=== PATIENT | male | born 1980 | race Caucasian/White ===

== ENCOUNTER 2016-09-12 10:32 | Emergency (ER) | payer BC, OTHER ==
[~2016-09-12] VITALS: Ht 170.2 cm; Wt 85.0 kg
[~2016-09-12 10:32] MED LIST: ALBU0.086 INH
[2016-09-12 10:33] VITALS: BP 153/77; PULSE 74; RESP 16; TEMP 98.3; O2SAT 98
[2016-09-12] MEDS ORDERED: VITA10007 PO (10:42)
[2016-09-12] MEDS ORDERED: VITA100C6 CHEW (10:42)
[2016-09-12] MEDS ORDERED: MULT1TAB84 PO (10:42)
[2016-09-12 10:44] VITALS: BP 136/87; PULSE 89; RESP 18; O2SAT 99
[2016-09-12] MEDS ORDERED: ONDANSETRON HCL 4 MG/2 ML VIAL IV PUSH ONE (11:00)
[2016-09-12] MEDS ORDERED: SODIUM CHLOR 0.9% 1000 ML INJ 1,000 ML IV ONE (11:00)
[2016-09-12] MEDS ORDERED: HYDROmorphone HCL PF 1 MG/ML VIAL IV PUSH ONE (11:00)
--- NOTE | 2016-09-12 11:04 | PD ---
HPI Chief Complaint: Abdominal Pain Time Seen by Provider: 10:50 Travel History International Travel<30 days: No Contact w/Intl Traveler<30days: No Traveled to known affect area: No History of Present Illness HPI This is a 35-year-old male who presents to the emergency department with right upper quadrant abdominal pain, constant for 3 days, severe, nonradiating associated with some subjective fever over the weekend. He denies any nausea or vomiting. He denies any diarrhea. He says this feels very similar to when he had to have his gallbladder out 4 years ago. He says he hasn't had much problems since then. The pain is worse with deep breaths and with movement. PFSH Past Medical History Cancer: No Cardiovascular Problems: No Diabetes: No Hepatitis: No Hiatal Hernia: No Hypertension: No Medical other: Yes (CHOLECYSTITIS) Respiratory: No Thyroid Disease: No Past Surgical History Cholecystectomy: Yes Ear Surgery: Yes (TUBES IN EARS ) Pacemaker: No Other Surgery: Yes Social History Alcohol Use: No Tobacco Use: No Substance Use: No Allergies-Medications (Allergen,Severity, Reaction): Coded Allergies: Contrast Media (Unverified Allergy, Severe, SEVERE RASH, 04/17/15) Seafood (Unverified Allergy, Severe, RASH, 04/17/15) Tussionex (Unverified Allergy, Severe, UNKNOWN, 04/17/15) Hydrocodone (Unverified Adverse Reaction, Severe, NAUSEA/VOMITING, 04/17/15 ) Uncoded Allergies: BRONDICON (Allergy, Severe, UNKNOWN REACTION, 03/02/12) Reported Meds & Prescriptions Reported Meds & Active Scripts Active Reported Multivitamin Adults (Multiple Vitamins W/ Minerals) 1 Tab 1 Tab PO DAILY Vitamin C (Ascorbic Acid) 1,000 Mg Tab 1,000 Mg PO Vitamin C (Ascorbic Acid) 100 Mg Chew Mg CHEW Review of Systems Except as stated in HPI: all other systems reviewed are Neg Physical Exam Narrative GENERAL:Well appearing, no acute distress SKIN: Warm and dry. HEAD: Atraumatic. Normocephalic. EYES: Pupils equal and round. No injection or drainage. ENT: Moist mucous membranes NECK: Trachea midline. CARDIOVASCULAR: Regular rate and rhythm. No murmur appreciated. RESPIRATORY: Clear to auscultation. Breath sounds equal bilaterally. GASTROINTESTINAL: Abdomen soft, tender to palpation in the right upper quadrant with no rebound or guarding. MUSCULOSKELETAL: No obvious deformities. NEUROLOGICAL: Awake and alert. No obvious cranial nerve deficits. Moving all extremities. PSYCHIATRIC: Appropriate mood and affect; insight and judgment normal. Data Data Last Documented VS Vital Signs Date Time Temp Pulse Resp B/P Pulse Ox O2 Delivery O2 Flow Rate FiO2 09/12/16 10:44 89 18 136/87 99 09/12/16 10:33 98.3 Orders Complete Blood Count With Diff (09/12/16 10:57) Comprehensive Metabolic Panel (09/12/16 10:57) Lipase (09/12/16 10:57) ^ Insert Iv (09/12/16 10:57) Us Abdomen Liver (09/12/16 ) Hydromorphone Pf Inj (Dilaudid Pf Inj) (09/12/16 11:00) Ondansetron Inj (Zofran Inj) (09/12/16 11:00) Sodium Chlor 0.9% 1000 Ml Inj (Ns 1000 M (09/12/16 11:00) Urinalysis - C+S If Indicated (09/12/16 12:20) Ct Abd/Pel W/O Iv Contrast (09/12/16 ) Labs Laboratory Tests Test 09/12/16 11:13 White Blood Count 6.6 TH/MM3 Red Blood Count 4.90 MIL/MM3 Hemoglobin 14.6 GM/DL Hematocrit 42.9 % Mean Corpuscular Volume 87.6 FL Mean Corpuscular Hemoglobin 29.8 PG Mean Corpuscular Hemoglobin 34.0 % Concent Red Cell Distribution Width 14.6 % Platelet Count 282 TH/MM3 Mean Platelet Volume 9.6 FL Neutrophils (%) (Auto) 58.6 % Lymphocytes (%) (Auto) 30.9 % Monocytes (%) (Auto) 6.6 % Eosinophils (%) (Auto) 3.1 % Basophils (%) (Auto) 0.8 % Neutrophils # (Auto) 3.9 TH/MM3 Lymphocytes # (Auto) 2.0 TH/MM3 Monocytes # (Auto) 0.4 TH/MM3 Eosinophils # (Auto) 0.2 TH/MM3 Basophils # (Auto) 0.1 TH/MM3 CBC Comment DIFF FINAL Differential Comment Sodium Level 139 MEQ/L Potassium Level 4.2 MEQ/L Chloride Level 101 MEQ/L Carbon Dioxide Level 28.1 MEQ/L Anion Gap 10 MEQ/L Blood Urea Nitrogen 13 MG/DL Creatinine 0.94 MG/DL Estimat Glomerular Filtration 92 ML/MIN Rate Random Glucose 197 MG/DL Calcium Level 9.1 MG/DL Total Bilirubin 0.5 MG/DL Aspartate Amino Transf 26 U/L (AST/SGOT) Alanine Aminotransferase 43 U/L (ALT/SGPT) Alkaline Phosphatase 61 U/L Total Protein 8.3 GM/DL Albumin 4.4 GM/DL Lipase 85 U/L MDM Medical Decision Making Medical Screen Exam Complete: Yes Emergency Medical Condition: Yes Interpretation(s) Afebrile, no tachycardia, hypertensive No leukocytosis Electrolytes are reassuring Lipase is normal Last 24 hours Impressions Liver Ultrasound 09/12/16 0000 Signed Impressions: Service Date/Time: Monday, September 12, 2016 11:31 - CONCLUSION: Normal ultrasound in this patient post cholecystectomy. No acute finding is identified. Praneeth Richter MD CT abdomen and pelvis: No acute process Differential Diagnosis Choledocholithiasis, nephrolithiasis, shingles, ulcer, gastritis Narrative Course This is a 35-year-old male who presents the emergency department with right upper quadrant abdominal pain. He was placed on a monitor and an IV was established. Labs are obtained which were all reassuring including a normal biliary labs. A right upper quadrant ultrasound was performed to evaluate for choledocholithiasis which was normal. CT abdomen and pelvis was performed to evaluate for possible nephrolithiasis which is reassuring. I'm not sure what's causing the patient's pain. I suspect he may have a musculoskeletal etiology. He's had an extensive workup in the emergency department and I don't appreciate a life-threatening etiology for his symptoms. Think he's safe to be discharged with pain control and follow-up with his primary care physician. Diagnosis Primary Impression: Musculoskeletal pain Patient Instructions: General Instructions Additional Instructions: If you develop severe or worsening abdominal pain, fever>100.4, persistent vomiting or inability to eat or drink return to the emergency department immediately. Follow up with your primary care physician in 1-2 days for a check-up. Med/Other Pt SpecificInfo: Prescription(s) given Scripts Naproxen 500 Mg [id number] Mg PO BID PRN (PAIN SCALE 4 TO 10) #20 TAB Prov:Guerline Fisher MD 09/12/16 Disposition: 01 DISCHARGE HOME Condition: Stable Guerline Fisher MD Sep 12, 2016 11:04
[2016-09-12 11:35] LABS: AUTOMATED NEUTROPHIL # 3.9 TH/MM3 (1.8-7.7); BASOPHIL # 0.1 TH/MM3 (0-0.2); BASOPHIL % 0.8 % (0.0-2.0); EOSINOPHIL # 0.2 TH/MM3 (0-0.4); EOSINOPHIL % 3.1 % (0.0-4.0); HEMATOCRIT 42.9 % (39.0-51.0); HEMO FLAGS DIFF FINAL; LYMPH % 30.9 % (9.0-44.0); MEAN CELL VOLUME 87.6 FL (80.0-100.0); MEAN CORPUSCULAR HEMOGLOBIN 29.8 PG (27.0-34.0); MONO % 6.6 % (0.0-8.0); NEUT % 58.6 % (16.0-70.0); PLATELET COUNT 282 TH/MM3 (150-450); RED CELL DISTRIBUTION WIDTH 14.6 % (11.6-17.2); WHITE BLOOD COUNT 6.6 TH/MM3 (4.0-11.0)
[2016-09-12 11:58] LABS: ALKALINE PHOSPHATASE 61 U/L (45-117); TOTAL BILIRUBIN ADULT 0.5 MG/DL (0.2-1.0)
[2016-09-12 12:03] LABS: ALT (GPT) 43 U/L (12-78); ANION GAP 10 MEQ/L (5-15); AST (GOT) 26 U/L (15-37); BICARBONATE 28.1 MEQ/L (21.0-32.0); BLOOD UREA NITROGEN 13 MG/DL (7-18); CHLORIDE 101 MEQ/L (98-107); GLOMERULAR FILTRATION RATE 92 ML/MIN (>89); POTASSIUM 4.2 MEQ/L (3.5-5.1); SODIUM (NA) 139 MEQ/L (136-145)
--- NOTE | 2016-09-12 12:16 | RADRPT ---
EXAM DATE/TIME: 09/12/2016 11:31 [facility] COMPARISON: No previous studies available for comparison. INDICATIONS : Right upper quadrant pain. MEDICAL HISTORY : Cholecystitis. SURGICAL HISTORY : Cholecystectomy. ENCOUNTER: Initial ACUITY: 3 days PAIN SCORE: 4/10 LOCATION: Bilateral upper quadrant MEASUREMENTS: LIVER: 16.3 cm length COMMON DUCT: 4 mm RIGHT KIDNEY: 10.7 x 4.7 x 6.6 cm SPLEEN: 10.6 cm length FINDINGS: LIVER: Normal echotexture without focal lesion or ductal dilatation. COMMON DUCT: No intraluminal mass or stone visualized. GALLBLADDER: Surgically absent. PANCREAS: The visualized portions are within normal limits. RIGHT KIDNEY: No hydronephrosis, stone or mass. SPLEEN: No focal lesion. CONCLUSION: Normal ultrasound in this patient post cholecystectomy. No acute finding is identified. Praneeth Richter MD on September 12, 2016 at 12:13 Board Certified Radiologist. This report was verified electronically.
--- NOTE | 2016-09-12 12:52 | RADRPT ---
EXAM DATE/TIME: 09/12/2016 12:35 [facility] COMPARISON: No previous studies available for comparison. INDICATIONS : Right lower quadrant pain. ORAL CONTRAST: No oral contrast ingested. RADIATION DOSE: 9.37 CTDIvol (mGy) MEDICAL HISTORY : None SURGICAL HISTORY : Cholecystectomy. ENCOUNTER: Initial ACUITY: 1 day PAIN SCALE: 10/10 LOCATION: Right lower quadrant TECHNIQUE: Volumetric scanning of the abdomen and pelvis was performed. Using automated exposure control and ad justment of the mA and/or kV according to patient size, radiation dose was kept as low as reasonably achievable to obtain optimal diagnostic quality images. FINDINGS: LOWER LUNGS: The visualized lower lungs are clear. LIVER: Homogeneous density without lesion. There is no dilation of the biliary tree. Gallbladder is absent with clips in the gallbladder fossa. SPLEEN: Normal size without lesion. PANCREAS: Within normal limits. KIDNEYS: Normal in size and shape. There is no mass, stone, or hydronephrosis. ADRENAL GLANDS: Within normal limits. VASCULAR: There is no aortic aneurysm. BOWEL/MESENTERY: The stomach, small bowel, and colon demonstrate no acute abnormality. There is no free intraperitone al air or fluid. Appendix and terminal ileum have a normal appearance. ABDOMINAL WALL: Within normal limits. RETROPERITONEUM: There is no lymphadenopathy. BLADDER: No wall thickening or mass. REPRODUCTIVE: Within normal limits. INGUINAL: There is no lymphadenopathy or hernia. MUSCULOSKELETAL: Within normal limits for patient age. CONCLUSION: No abnormality is identified to explain the right lower quadrant pain. No acute finding is seen. Praneeth Richter MD on September 12, 2016 at 12:47 Board Certified Radiologist. This report was verified electronically.
[2016-09-12 12:56] LABS: BLOOD, URINE NEG (NEG); COMMENT (UR) CULT NOT INDICATED; CULTURE IF INDICATED CULT NOT INDICATED; GLUCOSE,URINE NEG (NEG); KETONE, URINE NEG (NEG); MUCUS URINE FEW /lpf (OCC); NITRITE,URINE NEG (NEG); PH, URINE 5.5 (5.0-8.5); URINE COLOR YELLOW (YELLW/STRAW)
[2016-09-12] MEDS ORDERED: NAPR500T PO (12:57)
[2016-09-12] MEDS ORDERED: KETOROLAC TROMETHAMINE 30 MG/ML (IVP) VIAL IVP ONE (13:00)
== END 2016-09-12 13:15 | disposition home or self-care (01) ==
LOC: NEPA 10:32
DX: M79.1 Myalgia (principal)
CPT/HCPCS: 74176; 76705; 80053; 81001; 83690; 85025; 96361; 96374; 96375; 99284; J1170; J1885; J2405; J7030

== ENCOUNTER 2016-09-16 10:19 | Emergency (ER) | payer OTHER ==
[~2016-09-16] VITALS: Ht 170.2 cm; Wt 86.0 kg
[~2016-09-16 10:19] MED LIST changes: -ALBU0.086 INH; +MULT1TAB84 PO; +NAPR500T PO; +VITA10007 PO; +VITA100C6 CHEW
[2016-09-16 10:21] VITALS: BP 140/89; PULSE 74; RESP 17; TEMP 98.1; O2SAT 100
--- NOTE | 2016-09-16 10:39 | PD ---
HPI Chief Complaint: Abdominal Pain Time Seen by Provider: 10:39 Travel History International Travel<30 days: No Contact w/Intl Traveler<30days: No Traveled to known affect area: No History of Present Illness HPI 35-year-old male came to the emergency room with history of severe right upper quadrant abdominal pain. Patient says he was in the emergency room 2 days ago for the same thing. He had blood test, ultrasound of his gallbladder and CAT scan of his abdomen done. He was discharged home since everything was within normal limits. They continued to have the pain he went to see his primary care yesterday who put him on Flexeril. However the pain still continues and today he was at work with severe incapacitating pain. He decided to come to the emergency room again. He looks very uncomfortable. Vital signs are stable. His workup done from his recent previous ER visit is completely within normal limits. No history of trauma. No history of fever. No history of cough or shortness of breath. Patient describes the pain worsening with slightest movement or deep breaths. [facility] Past Medical History Narrative Medical List of his past medical, surgical, social and family history is reviewed from the nursing note. Cancer: No Cardiovascular Problems: No Diabetes: No Hepatitis: No Hiatal Hernia: No Hypertension: No Respiratory: No Thyroid Disease: No Past Surgical History Cholecystectomy: Yes Ear Surgery: Yes (TUBES IN EARS INFANT) Pacemaker: No Other Surgery: Yes Social History Alcohol Use: No Tobacco Use: No Substance Use: No Allergies-Medications (Allergen,Severity, Reaction): Coded Allergies: Contrast Media (Unverified Allergy, Severe, SEVERE RASH, 09/16/16) Seafood (Unverified Allergy, Severe, RASH, 09/16/16) Tussionex (Unverified Allergy, Severe, UNKNOWN, 09/16/16) Hydrocodone (Unverified Adverse Reaction, Severe, NAUSEA/VOMITING, 09/16/16) Uncoded Allergies: BRONDICON (Allergy, Severe, UNKNOWN REACTION, 03/02/12) Comments List of his allergies reviewed from the nursing note. Reported Meds & Prescriptions Reported Meds & Active Scripts Active Reported Multivitamin Adults (Multiple Vitamins W/ Minerals) 1 Tab 1 Tab PO DAILY Prednisone 1 Mg Tab 8 Mg PO DAILY Narrative Medication List of his home medication reviewed from the nursing note. Review of Systems Except as stated in HPI: all other systems reviewed are Neg Physical Exam Narrative GENERAL: Awake, alert, moderate distress, anxious SKIN: Warm and dry. HEAD: Atraumatic. Normocephalic. EYES: Pupils equal and round. No scleral icterus. No injection or drainage. ENT: No nasal bleeding or discharge. Mucous membranes pink and moist. NECK: Trachea midline. No JVD. CARDIOVASCULAR: Regular rate and rhythm. No murmur appreciated. RESPIRATORY: No accessory muscle use. Clear to auscultation. Breath sounds equal bilaterally. GASTROINTESTINAL: Right upper quadrant tenderness, right lower rib cage pain. Hepatic and splenic margins not palpable. MUSCULOSKELETAL: No obvious deformities. No clubbing. No cyanosis. No edema. NEUROLOGICAL: Awake and alert. No obvious cranial nerve deficits. Motor grossly within normal limits. Normal speech. PSYCHIATRIC: Appropriate mood and affect; insight and judgment normal. Data Data Last Documented VS Vital Signs Date Time Temp Pulse Resp B/P Pulse Ox O2 Delivery O2 Flow Rate FiO2 09/16/16 13:35 70 18 118/69 99 09/16/16 10:21 98.1 Orders Complete Blood Count With Diff (09/16/16 10:52) Comprehensive Metabolic Panel (09/16/16 10:52) Troponin I (09/16/16 10:52) Iv Access Insert/Monitor (09/16/16 10:52) Electrocardiogram (09/16/16 10:52) Ecg Monitoring (09/16/16 10:52) Oximetry (09/16/16 10:52) Oxygen Administration (09/16/16 10:52) Ct Pulmonary Angiogram (09/16/16 10:52) Sodium Chloride 0.9% Flush (Ns Flush) (09/16/16 11:00) Sodium Chlor 0.9% 1000 Ml Inj (Ns 1000 M (09/16/16 11:00) Orphenadrine Inj (Norflex Inj) (09/16/16 11:00) Morphine Inj (Morphine Inj) (09/16/16 11:00) Lipase (09/16/16 10:52) Iohexol 350 Inj (Omnipaque 350 Inj) (09/16/16 11:48) Labs Laboratory Tests Test 09/16/16 10:45 White Blood Count 6.8 TH/MM3 Red Blood Count 4.67 MIL/MM3 Hemoglobin 14.0 GM/DL Hematocrit 41.2 % Mean Corpuscular Volume 88.2 FL Mean Corpuscular Hemoglobin 30.0 PG Mean Corpuscular Hemoglobin 34.0 % Concent Red Cell Distribution Width 14.2 % Platelet Count 266 TH/MM3 Mean Platelet Volume 9.3 FL Neutrophils (%) (Auto) 74.7 % Lymphocytes (%) (Auto) 17.7 % Monocytes (%) (Auto) 5.4 % Eosinophils (%) (Auto) 1.3 % Basophils (%) (Auto) 0.9 % Neutrophils # (Auto) 5.1 TH/MM3 Lymphocytes # (Auto) 1.2 TH/MM3 Monocytes # (Auto) 0.4 TH/MM3 Eosinophils # (Auto) 0.1 TH/MM3 Basophils # (Auto) 0.1 TH/MM3 CBC Comment DIFF FINAL Differential Comment Sodium Level 138 MEQ/L Potassium Level 4.0 MEQ/L Chloride Level 103 MEQ/L Carbon Dioxide Level 25.1 MEQ/L Anion Gap 10 MEQ/L Blood Urea Nitrogen 11 MG/DL Creatinine 0.84 MG/DL Estimat Glomerular Filtration 105 ML/MIN Rate Random Glucose 140 MG/DL Calcium Level 9.3 MG/DL Total Bilirubin 0.4 MG/DL Aspartate Amino Transf 20 U/L (AST/SGOT) Alanine Aminotransferase 49 U/L (ALT/SGPT) Alkaline Phosphatase 57 U/L Troponin I LESS THAN 0.02 NG/ML Total Protein 8.4 GM/DL Albumin 4.3 GM/DL Lipase 87 U/L MDM Medical Decision Making Medical Screen Exam Complete: Yes Emergency Medical Condition: Yes Medical Record Reviewed: Yes Interpretation(s) Twelve-lead EKG was reviewed by me. Normal sinus rhythm, normal axis, nonspecific ST-T wave changes. Heart rate of 68 bpm per Differential Diagnosis PE, musculoskeletal pain Narrative Course 1:08 PM patient had his gallbladder taken out. Years ago. Given his normal abdominal CT and gallbladder ultrasound in couple days ago I decided to go ahead and rule out PE. CT pulmonary angiogram was done and resulted and within normal limits. Blood test again is within normal limits. Patient was given IM Norflex. I'll discharge him home. He has medications from his primary care as well as from the previous ER visit. Procedures EKG Prior to Arrival: No Diagnosis Primary Impression: Musculoskeletal pain Referrals: Primary Care Physician 1 week Departure Forms: Tests/Procedures, Work Release Enter return to work date: Sep 17, 2016 Additional Instructions: Please take the medications given to you from a previous ER visit as well as your primary care for this pain. Follow-up with your primary care next week. Med/Other Pt SpecificInfo: No Change to Meds Disposition: 01 DISCHARGE HOME Condition: Stable Gurwinder Khan MD Sep 16, 2016 10:39 Gurwinder Khan MD Sep 16, 2016 10:39
[2016-09-16 10:41] VITALS: BP 131/99; PULSE 70; RESP 18; O2SAT 100
[2016-09-16] MEDS ORDERED: SODIUM CHLOR 0.9% 1000 ML INJ 1,000 ML IV ONE (11:00)
[2016-09-16] MEDS ORDERED: MORPHINE SULFATE 4 MG/ML INJ IV PUSH ONE (11:00)
[2016-09-16] MEDS ORDERED: SODIUM CHLORIDE 0.9% FLUSH 5 ML FLUSH IVF PRN (11:00)
[2016-09-16] MEDS ORDERED: ORPHENADRINE INJ 60 MG/2 ML AMP IM ONE (11:00)
[2016-09-16] MEDS ORDERED: IOHEXOL 350 MG/ML 10 ML VIAL (for RAD DIAG) IV ONE (11:48)
[2016-09-16 11:49] LABS: AUTOMATED NEUTROPHIL # 5.1 TH/MM3 (1.8-7.7); BASOPHIL # 0.1 TH/MM3 (0-0.2); BASOPHIL % 0.9 % (0.0-2.0); EOSINOPHIL # 0.1 TH/MM3 (0-0.4); EOSINOPHIL % 1.3 % (0.0-4.0); HEMATOCRIT 41.2 % (39.0-51.0); HEMO FLAGS DIFF FINAL; LYMPH % 17.7 % (9.0-44.0); LYMPHOCYTE # 1.2 TH/MM3 (1.0-4.8); MEAN CELL VOLUME 88.2 FL (80.0-100.0); MONO % 5.4 % (0.0-8.0); NEUT % 74.7 % (16.0-70.0); PLATELET COUNT 266 TH/MM3 (150-450); RED BLOOD COUNT 4.67 MIL/MM3 (4.50-5.90); RED CELL DISTRIBUTION WIDTH 14.2 % (11.6-17.2); WHITE BLOOD COUNT 6.8 TH/MM3 (4.0-11.0)
[2016-09-16 12:08] LABS: ALT (GPT) 49 U/L (12-78); ANION GAP 10 MEQ/L (5-15); AST (GOT) 20 U/L (15-37); BICARBONATE 25.1 MEQ/L (21.0-32.0); BLOOD UREA NITROGEN 11 MG/DL (7-18); CHLORIDE 103 MEQ/L (98-107); GLOMERULAR FILTRATION RATE 105 ML/MIN (>89); SODIUM (NA) 138 MEQ/L (136-145)
[2016-09-16 12:11] LABS: ALKALINE PHOSPHATASE 57 U/L (45-117); TOTAL BILIRUBIN ADULT 0.4 MG/DL (0.2-1.0)
[2016-09-16] MEDS ORDERED: CYCL1TAB29 PO (12:14)
[2016-09-16] MEDS ORDERED: PRED1 PO (12:14)
[2016-09-16] MEDS ORDERED: MELO-1 PO (12:14)
--- NOTE | 2016-09-16 12:54 | RADRPT ---
EXAM DATE/TIME: 09/16/2016 11:42 [facility] COMPARISON: CT ABDOMEN & PELVIS W/O CONTRAST, September 12, 2016, 12:35. INDICATIONS : Right lower chest pain IV CONTRAST: 50 cc Omnipaque 350 (iohexol) IV RADIATION DOSE: 23.10 CTDIvol (mGy) MEDICAL HISTORY : Asthma SURGICAL HISTORY : Cholecystectomy. ENCOUNTER: Initial ACUITY: 2 days PAIN SCALE: 5/10 LOCATION: Right chest TECHNIQUE: Volumetric scanning of the chest was performed using a pulmonary embolism protocol MIP images were re constructed. Using automated exposure control and adjustment of the mA and/or kV according to patien t size, radiation dose was kept as low as reasonably achievable to obtain optimal diagnostic quality images. FINDINGS: PULMONARY ARTERIES: No filling defects are seen in the pulmonary arteries through the segmental level. LUNGS: There is no consolidation or pneumothorax . No concerning pulmonary nodule is visualized. There is m ild dependent atelectasis. PLEURAE: There is no pleural thickening or pleural effusion. MEDIASTINUM: There is good visualization of the great vessels of the middle mediastinum. No evidence of mediastin al or hilar adenopathy/mass. MUSCULOSKELETAL: There are mild degenerative changes of the thoracic spine. MISCELLANEOUS: The visualized upper abdominal organs demonstrate no acute abnormality. There is gynecomastia. CONCLUSION: 1. No PE is identified. 2. Additionally, no acute finding is identified to explain the chest pain. Praneeth Richter MD on September 16, 2016 at 12:49 Board Certified Radiologist. This report was verified electronically.
[2016-09-16 13:35] VITALS: BP 118/69
--- NOTE | 2016-09-17 20:08 | EKG ---
Date Performed: 09/16/2016 Time Performed: 12:42:00 PTAGE: 35 years EKG: Sinus rhythm NORMAL ECG NO PREVIOUS TRACING DOCTOR: Werner Mitchell Interpretating Date/Time 09/17/2016 20:06:57
== END 2016-09-16 13:40 | disposition home or self-care (01) ==
LOC: NEPC 10:19
DX: M79.1 Myalgia (principal)
CPT/HCPCS: 71275; 80053; 83690; 84484; 85025; 93005; 96361; 96372; 96374; 99284; J2270; J2360; J7030; Q9967